=== PATIENT | female | born 1965 | race African-American/Black ===

== ENCOUNTER 2020-03-05 12:02 | Emergency (ER) | payer SELFPAY ==
[~2020-03-05] VITALS: Ht 160 cm; Wt 129.7 kg
[2020-03-05 12:29] LABS: BILIRUBIN,URINE Negative (NEGATIVE); BLOOD, URINE Small Ery/uL (NEGATIVE); COLOR,URINE Yellow (YELLOW); KETONES,URINE Negative (NEGATIVE); LEUKOCYTE ESTERASE ,URINE Negative (NEGATIVE); NITRITE, URINE Negative (NEGATIVE); PROTEIN,URINE Negative (NEGATIVE); UGLUCOSE Negative (NEGATIVE); UROBILINOGEN,URINE 0.2 EU/dL (0.2)
[2020-03-05 12:31] LABS: APPEARANCE,URINE SLIGHTLY HAZY (CLEAR)
[2020-03-05] MEDS ORDERED: AMLO10TA7 PO (12:33)
[2020-03-05] MEDS ORDERED: CYCL10TA9 PO (12:33)
[2020-03-05 12:35] LABS: BACTERIA,URINE None seen /HPF (None Seen); SQUAMOUS EPITHELIAL CELL,UR Few /HPF (None Seen); WBC,URINE 0-1 /HPF (0-3)
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
[2020-03-05 12:56] LABS: BASOPHILS # (AUTO) 0.2 /CMM (0.0-0.2); BASOPHILS % (AUTO) 4.4 % (0.0-2.0); EOSINOPHILS % (AUTO) 1.2 % (0.0-6.0); HEMATOCRIT 40 % (33-45); HEMOGLOBIN 13.1 g/dL (11.5-14.8); LYMPHOCYTES # (AUTO) 0.8 /CMM (0.8-4.8); LYMPHOCYTES % (AUTO) 14.5 % (20.0-44.0); MEAN CORPUSCULAR HGB CONC 33 g/dl (31.0-36.0); MEAN CORPUSCULAR VOLUME 89 fL (82-100); MONOCYTES # (AUTO) 0.5 /CMM (0.1-1.30); MONOCYTES % (AUTO) 8.2 % (2.0-12.0); NEUTROPHILS % (AUTO) 71.7 % (43.0-81.0); PLATELET COUNT (AUTO) 275 /CMM (150-450); RED BLOOD CELL COUNT(AUTO) 4.51 MIL/uL (4.0-5.2); WHITE BLOOD COUNT (AUTO) 5.6 K/uL (4.3-11.0)
[2020-03-05 13:04] LABS: CALCIUM, SERUM 8.7 mg/dL (8.5-10.1); CARBON DIOXIDE 30 mmol/L (21-32); CHLORIDE 100 mmol/L (98-107); GLUCOSE 102 mg/dL (74-106); POTASSIUM 3.5 mmol/L (3.5-5.1); SODIUM SERUM 138 mmol/L (136-145); UREA NITROGEN, BLOOD 10 mg/dL (7-18)
[2020-03-05 13:15] LABS: ALANINE AMINOTRANSFERASE 30 U/L (12-78); ALBUMIN 3.7 g/dL (3.4-5.0); ALKALINE PHOSPHATASE 81 U/L (46-116); ASPARTATE AMINOTRANSFERASE 31 U/L (15-37); BILIRUBIN,DIRECT 0.1 mg/dL (0.0-0.2); BILIRUBIN,TOTAL 0.4 mg/dL (0.2-1.0); TOTAL PROTEIN, SERUM 7.9 g/dL (6.4-8.2)
[2020-03-05 13:17] LABS: ACETAMINOPHEN < 2 ug/ml (10-30); ALCOHOL, BLOOD < 3 mg/dL (0-0); SALICYLATE 0.9 mg/dL (2.8-20.0)
[2020-03-05] MEDS ORDERED: CLONIDINE HCL 0.1 MG TABLET ONE (13:38)
[2020-03-05] MEDS ORDERED: AMLODIPINE BESYLATE 5 MG TABLET ONE (13:38)
--- NOTE | 2020-03-05 13:43 | NUR ---
PT NOTED WITH BP 251/136 MD MADE AWARE. ORDER RECEIVED TO GIVE AMLODIPINE 10MG PO X 1 AND CLONIDIDNE 0.2MG PO X 1. NOTED AND CARRIED OUT
[2020-03-05] MEDS ORDERED: CLONIDINE HCL 0.1 MG TABLET PO ONE (14:00)
[2020-03-05] MEDS ORDERED: AMLODIPINE BESYLATE 5 MG TABLET PO ONE (14:00)
--- NOTE | 2020-03-05 14:09 | NUR ---
PRABHA CHONG NOTIFIED FOR PSYCH EVAL.
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
[2020-03-05 14:51] VITALS: BP 192/106
--- NOTE | 2020-03-05 14:51 | NUR ---
Patient discharged to home in stable condition. Written and verbal after care instructions given. Patient verbalizes understanding of instruction. Pt ambulatory with a steady gait
== END 2020-03-05 14:58 | disposition home or self-care (01) ==
LOC: ER 12:06
DX: F41.9 Anxiety disorder, unspecified (principal); I10 Essential (primary) hypertension; Z79.899 Other long term (current) drug therapy
CPT/HCPCS: 36415; 80048; 80076; 80305; 80307; 80329; 81001; 84703; 85025; 99283; G0480; 81000-TC